=== PATIENT | female | born 2000 | race Two or more races ===

== ENCOUNTER 2025-03-13 15:26 | Emergency (ER) | payer MEDICAID, SELFPAY ==
[2025-03-13 15:30] VITALS: BMI 28.3
--- NOTE | 2025-03-13 16:12 | XR_ITS ---
Examination: Lumbar spine 3 views Technique: AP lateral lumbar spine 3 views Date and time: March 13, 2025, 1627 hrs. Indications: Low back pain with bilateral hip pain beginning one month ago. Findings: Adequate alignment lumbar vertebral bodies Moderate to advanced disc narrowing L4-L5, L5-S1. No lumbar fracture Impression: Moderate to advanced degenerative disc disease L4-L5, L5-S1
--- NOTE | 2025-03-13 16:12 | XR_ITS ---
Examination: AP pelvis single view Technique one AP pelvis single view Date and time: March 13, 2025 1619 hrs. Indications: Bilateral hip pain beginning one month ago. Findings: No hip fracture or hip dislocation No acute significant arthritic change Multiple pelvis intact Impression: No hip fracture No hip arthritic change
--- NOTE | 2025-03-13 16:12 | PD.EDRME ---
Rapid Medical Screening Exam RME Arrival date/time: 03/13/25 15:26 24-year-old female presents to the emergency department for complaint of lower back pain generalized fatigue bilateral hip pain Chief Complaint: Back Pain/Injury Time Seen by Provider: 03/13/25 16:06
[2025-03-13 16:15] VITALS: BP 128/76; PULSE 104; RESP 18; TEMP 36.9; O2SAT 97
[2025-03-13 16:33] LABS: Basophils # (Auto) 0.0 Thou/mm3 (0.0-0.2); Basophils % (Auto) 0 % (0-2.5); Eosinophils # (Auto) 0.0 Thou/mm3 (0.0-0.5); Eosinophils % (Auto) 1 % (0-10); Hematocrit 39.2 % (36.0-46.0); Hemoglobin 13.2 g/dL (12.0-16.0); Immature Granulocytes Auto 0.01 Thou/mm3 (0.00-0.00); Lymphocytes # (Auto) 2.3 Thou/mm3 (1.0-4.8); Lymphocytes % (Auto) 31 % (10-50); Mean Corpuscular HGB Conc 33.7 g/dl (31.0-37.0); Mean Corpuscular Hemoglobin 30.1 pg (25.0-35.0); Mean Corpuscular Volume 90 fL (80-100); Monocytes # (Auto) 0.6 Thou/mm3 (0.0-0.8); Monocytes % (Auto) 8 % (0-12); Neutrophils # (Auto) 4.5 Thou/mm3 (1.8-7.7); Neutrophils % (Auto) 60 % (37-80); Nucleated Red Blood Cell # 0.00 Thou/mm3 (0.00-0.00); Nucleated Red Blood Cell % 0 /100 WBC (0); Platelet Count 288 Thou/mm3 (140-440); RDW Standard Deviation 42.1 fL (36.4-46.3); Red Blood Count 4.38 Miln/mm3 (4.00-5.20); White Blood Count 7.4 Thou/mm3 (3.6-11.0)
[2025-03-13 16:56] LABS: Alanine Aminotransferase 23 U/L (10-49); Albumin, Serum 4.7 gm/dL (3.5-5.0); Albumin/Globulin Ratio 1.6 (1.2-2.2); Alkaline Phosphatase 71 U/L (46-116); Anion Gap 9 (7-16); Aspartate Amino Transferase 17 U/L (0-34); BUN/Creatinine Ratio 12 Ratio (12-20); Bilirubin,Total 0.3 mg/dL (0.3-1.2); Blood Urea Nitrogen 11 mg/dL (9-23); Calcium 9.9 mg/dL (8.3-10.6); Calcium (Corrected) 9.9 mg/dL (8.5-10.1); Carbon Dioxide 28.2 mMol/L (20.0-31.0); Chloride 104 mMol/L (98-107); Creatinine (Component) 0.9 mg/dL (0.6-1.3); Estimated Creatinine Clearance 98.1 mL/min (>60); Globulin 3.0 gm/dL (2.3-3.5); Glucose 58 mg/dL (74-106); Osmolality,Calculated 278 (275-295); Potassium 3.5 mMol/L (3.4-5.1); Sodium 141 mMol/L (136-145); Total Protein 7.7 gm/dL (5.7-8.2); eGFR > 60 See Note
[2025-03-13 17:16] LABS: Collection Type, Urine Clean Catch
[2025-03-13 17:23] LABS: Bilirubin,Urine Negative (Negative); Blood,Urine Negative (Negative); Clarity,Urine Clear (Clear/Hazy); Color,Urine Yellow (Lt Yel-Yel); Culture Indicated,Urine Not Indicated; Glucose, Urine Negative (Negative); Ketones,Urine Negative (Negative); Leukocyte Esterase,Urine Positive (Negative); Nitrite,Urine Negative (Negative); PH,Urine 6.0 (5.0-7.0); Protein,Urine Trace (Neg - Trace); RBC,Urine 6 /hpf (0-3); Specific Gravity,Urine 1.031 (1.001-1.035); Squamous Epithelial Cell,Urine 1 /hpf (0-5); Urobilinogen,Urine Negative mg/dL (0.0-1.0); WBC,Urine 3 /hpf (0-5)
[2025-03-13 17:29] LABS: HCG Qualitative,Urine Negative
[2025-03-13 19:26] VITALS: BP 125/65; PULSE 95; RESP 18; TEMP 36.9; O2SAT 98
--- NOTE | 2025-03-13 19:40 | PD.EDBACK ---
ED Back Injury Pain RME/HPI General Chief Complaint: Back Pain/Injury Stated Complaint: LOWER BACK/ABD AND HIP PAIN Time Seen by Provider: 03/13/25 16:06 Arrival date/time: 03/13/25 15:26 RME / HPI RME / HPI Narrative: 24-year-old female presents to the emergency department for complaint of lower back pain generalized fatigue bilateral hip pain. Onset of symptoms for the last 1 month getting worse over time. Currently patient is having 10 out of 10 pain. Patient denies any bladder incontinence. Denies any bowel incontinence. Denies any saddle anesthesia patient is ambulatory. Patient denies any recent trauma or fall. Denies any fever also. Patient is ambulatory. Related Data Previous Rx's ?Medication ?Instructions ?Recorded azithromycin 500 mg tablet See Rx Instructions PO .COMPLEX #6 06/06/22 tabs ibuprofen 800 mg tablet 800 mg PO TID PRN pain #30 tabs 06/06/22 naproxen 500 mg tablet 500 mg PO BID PRN pain #30 tabs 12/26/22 dexamethasone 6 mg tablet 6 mg PO QDAY #7 tabs 03/13/25 ibuprofen 800 mg tablet 800 mg PO Q8H PRN pain #30 tabs 03/13/25 lidocaine 5 % topical patch 1 patch topical QDAY #15 ea 03/13/25 methocarbamol 500 mg tablet 500 mg PO TID PRN pain #30 tabs 03/13/25 Allergies Allergy/AdvReac Type Severity Reaction Status Date / Time No Known Allergies Allergy Verified 03/13/25 15:29 Review of Systems Review of Systems Narrative Review of Systems: Review of system reviewed and within normal limits except mentioned in HPI ED Exam Narrative Physical exam: VITAL SIGNS: Reviewed. GENERAL APPEARANCE: Alert and interactive, follows commands, no acute distress, HEAD AND FACE: Non-traumatic. ENT: PERRL, pink conjunctivitis, eyelid no trauma, Mucous membrane moist. NECK: Supple, nontender, no nuchal rigidity. CHEST: No tenderness, no crepitus, no paradoxical movement, no retractions. LUNGS: Clear, well ventilated, symmetric, no rales, no wheezing, no ronchi, no stridor, good breath sounds bilaterally. HEART: Regular rate, regular rhythm, no murmur, no gallops. ABDOMEN: Soft, positive bowel sounds, nondistended, no guarding, nontender, no rebound, no masses, RECTAL: Deferred. GENITAL: Deferred. NEUROLOGICAL: Gross motor function intact sensory function intact, Appropriate for age. MUSCULOSKELETAL: low back tenderness, no midline tenderness, full range of motion. EXTREMITIES: Nontender, full range of motion. SKIN: Color pink, dry, no rash, no lacerations, no abrasions, no contusions. LYMPHATICS: Deferred. Course Quality Measures none Orders Category Date Time Status XR lumbar spine 2-3V Stat Exams 03/13/25 16:12 Completed XR pelvis 1-2V Stat Exams 03/13/25 16:12 Completed CBC Stat Lab 03/13/25 16:23 Completed Comprehensive Metabolic Panel Stat Lab 03/13/25 16:23 Completed HCG Qualitative,Urine Stat Lab 03/13/25 17:02 Completed UA, C/S IF [Urinalysis, C/S if Indicated] Stat Lab 03/13/25 17:02 Completed Dexamethasone Inj [Decadron Inj] Med 03/13/25 19:38 Discontinued 10 mg PO X1 ONE Ketorolac Inj [Toradol Inj] Med 03/13/25 19:38 Discontinued 30 mg IM X1 ONE Lidocaine 5% Patch Med 03/13/25 19:38 Discontinued 1 patch TOP X1 ONE methocarbamoL [Robaxin] Med 03/13/25 19:38 Discontinued 500 mg PO X1 ONE Vital Signs Vital signs: Vital Signs Temperature 98.4 F 03/13/25 16:15 Pulse Rate 104 H 03/13/25 16:15 Respiratory Rate 18 03/13/25 16:15 Blood Pressure 128/76 03/13/25 16:15 Pulse Oximetry (%) 97 03/13/25 16:15 Oxygen Delivery Method Room Air 03/13/25 16:15 Back Pain / Injury MDM Narrative MDM Narrative:: 24-year-old female presents to the emergency department for complaint of lower back pain generalized fatigue bilateral hip pain. Onset of symptoms for the last 1 month getting worse over time. Currently patient is having 10 out of 10 pain. Patient denies any bladder incontinence. Denies any bowel incontinence. Denies any saddle anesthesia patient is ambulatory. Patient denies any recent trauma or fall. Denies any fever also. Patient is ambulatory. Patient's workup today all came back unremarkable except for x-ray of the lumbar spine that showed degenerative disc lumbar disease. Patient received Decadron, Toradol lidocaine patch and Robaxin with significant improvement of pain. Patient stable for discharge home further imaging is not needed patient not showing any cauda equina syndrome. Patient data External records reviewed:: None Clinical information provided by:: patient Social determinants that could affect healthcare access:: none Patient has the following chronic illnesses:: None How is presenting disease/condition affected by chronic disease/condition?: no chronic disease Evaluation data The following diagnostics were reviewed and interpreted by me:: lab results and radiology exam(s) Lab and/or radiology exams considered but not ordered:: None Interpretation Summary: See results [facility] Medications / Prescriptions Medications or Prescriptions considered but not ordered:: None Medication administrations:: Medication Administration History Discontinued Medications Dexamethasone Sodium Phosphate (Dexamethasone Sod Phos Inj 10 Mg/Ml Vial) 10 mg PO X1 ONE Stop: 03/13/25 19:39 Last Admin: 03/13/25 19:58 Dose: 10 mg Documented By: Ketorolac Tromethamine (Ketorolac Inj 60 Mg/2 Ml Vial) 30 mg IM X1 ONE Stop: 03/13/25 19:39 Last Admin: 03/13/25 19:59 Dose: 30 mg Documented By: Lidocaine (Lidocaine 5% 1 Patch) 1 patch TOP X1 ONE Stop: 03/13/25 19:39 Last Admin: 03/13/25 20:02 Dose: 1 patch Documented By: Methocarbamol (Methocarbamol 500 Mg Tablet) 500 mg PO X1 ONE Stop: 03/13/25 19:39 Last Admin: 03/13/25 19:56 Dose: 500 mg Documented By: See [facility] Consultations Consultation(s) initiated? (list below): No Diagnosis Differential diagnosis back pain/injury: lumbar radiculopathy and sciatica Most likely diagnosis given after review of the tests above:: Degenerative disc disease lumbar Admission Indicated Admission indicated?: not indicated Admission Request Was there a request for admission?: No Disposition Plan Disposition Plan: Discharge Discharge Attestation Discharge Attestation: The patient was given an opportunity to ask questions and understood the discharge instructions. Discharge instructions specifically effects, indications for sooner follow up or return to the emergency department, and the expected course of current diagnosis. Patient condition: Stable Discharge Plan Plan Patient Disposition: HOME (Self Care) Discharge Disposition comment: Stable Prescriptions/Referrals Prescriptions/Med Rec: New dexamethasone 6 mg tablet 6 mg PO QDAY Qty: 7 0RF lidocaine 5 % adhesive patch,medicated 1 patch topical QDAY Qty: 15 0RF Rx Instructions: leave on most painful area for up to 12 hrs ibuprofen 800 mg tablet 800 mg PO Q8H PRN (Reason: pain) Qty: 30 0RF methocarbamol 500 mg tablet 500 mg PO TID PRN (Reason: pain) Qty: 30 0RF No Action ibuprofen 800 mg tablet 800 mg PO TID PRN (Reason: pain) Qty: 30 0RF azithromycin 500 mg tablet See Rx Instructions .ROUTE .COMPLEX Qty: 6 0RF Rx Instructions: take 500 mg today (day 1), then 250 mg for 4 days (days 2-5) naproxen 500 mg tablet 500 mg PO BID PRN (Reason: pain) Qty: 30 0RF Referrals: Eileen Trayolr PA-C [Primary Care Provider] - In 1 week Problem List Clinical Impression: Degenerative joint disease (DJD) of lumbar spine Patient/Caregiver Discharge Instructions Discharge Activity: activity as tolerated Education Materials: Common Spine and Disk Problems, ED Degenerative Disk Disease Additional Instructions: Thank you for the opportunity for serving you today. You are stable for discharged . You are advised to: Follow-up with your PCP in 1 to 2 days as your PCP to refer you to a spine surgeon Return to ED for worsening of symptoms Increase oral fluids Take medication as prescribed Print Language: Bengali Stand Alone Forms: Jalyn Award Info., Work/School Release, Patient Portal Info Letter
[2025-03-13] MEDS: DEXAMETHASONE SOD PHOS INJ 10 MG/ML VIAL PO (19:58)
[2025-03-13] MEDS: KETOROLAC INJ 60 MG/2 ML VIAL 30 MG IM (19:59)
[2025-03-13] MEDS: LIDOCAINE 5% 1 PATCH TOP (20:02)
== END 2025-03-13 20:08 | disposition home or self-care (01) ==
PROVIDERS: Nurse Practitioner Primary Care; Emergency Provider Family Medicine; PCP Physician Assistant Medical
DX: M51.360 Other intervertebral disc degeneration, lumbar region with discogenic back pain only (principal)
CPT/HCPCS: 36415; 72100; 72170; 80053; 81001; 81025; 85025; 96372; 99283; J1100; J1885; J3490

== ENCOUNTER 2025-04-03 20:17 | Emergency (ER) | payer MEDICAID, SELFPAY ==
[2025-04-03 20:18] VITALS: BMI 29.4
[2025-04-03 21:05] VITALS: BP 128/72; PULSE 110; RESP 16; TEMP 37.2; O2SAT 99
--- NOTE | 2025-04-03 21:08 | XR_ITS ---
Examination: CT lumbar spine, without contrast. 2-D sagittal reconstructions. 2-D coronal reconstructions. 3-D reconstructions. Date and time of exam:April, 10:45 PM Indications: Low back pain radiating down the legs numbness in the legs one month CTDI: vol (mGy):20.1 DLP: (mGycm):791 Technique: Multiple 1.25 mm axial sections of the lumbar spine without intravenous contrast have been obtained. 2-D sagittal and coronal reconstructions have been obtained. 3-D reconstructions have been obtained. Low dose protocols were performed. One or more of the following dose reduction techniques were used; automated exposure control, adjustment of the mA and/or KV according to patient size, use of iterative reconstruction technique. Findings: Adequate alignment lumbar vertebral bodies No lumbar fracture Mild disc narrowing L4-L5. No spondylolisthesis. L5-S1 9 mm right paracentral disc bulge, displacing the right S1 nerve root and producing severe right L5 ganglionic compression L4-L5 4 mm central lumbar disc bulge More cephalad levels unremarkable Impression: L5-S1 large, 9 mm, right paracentral disc bulge displacing the right S1 nerve root and producing severe right L5 ganglionic compression L4-L5 4 mm central lumbar disc bulge
--- NOTE | 2025-04-03 21:08 | PD.EDRME ---
Rapid Medical Screening Exam [facility] Arrival date/time: 04/03/25 20:17 24F with no significant PMH presents to ED with worse than usual low back pain, as well as several hours of BLE numbness. Patient denies bowel/bladder incontinence. Patient took 800 mg ibuprofen w/o relief. Chief Complaint: Back Pain/Injury Vital signs: Vital Signs Temperature 98.9 F 04/03/25 21:05 Pulse Rate 110 H 04/03/25 21:05 Respiratory Rate 16 04/03/25 21:05 Blood Pressure 128/72 04/03/25 21:05 Pulse Oximetry (%) 99 04/03/25 21:05 Oxygen Delivery Method Room Air 04/03/25 21:05
[2025-04-03 21:54] VITALS: BP 122/83; PULSE 96; RESP 19; TEMP 36.9; O2SAT 100
[2025-04-03 22:00] VITALS: BP 140/73; PULSE 96; RESP 23; O2SAT 98
[2025-04-03 22:17] LABS: Collection Type, Urine Clean Catch
[2025-04-03 22:19] LABS: HCG Qualitative,Urine Negative
[2025-04-03 22:23] LABS: Amorphous Crystals,Urine Present (Absent); Bacteria,Urine Rare; Bilirubin,Urine Negative (Negative); Blood,Urine 1+ (Negative); Calcium Oxalate Crystals,Urine 1+; Clarity,Urine Clear (Clear/Hazy); Color,Urine Yellow (Lt Yel-Yel); Culture Indicated,Urine Not Indicated; Glucose, Urine Negative (Negative); Ketones,Urine Negative (Negative); Leukocyte Esterase,Urine Positive (Negative); Nitrite,Urine Negative (Negative); PH,Urine 6.0 (5.0-7.0); Protein,Urine Trace (Neg - Trace); RBC,Urine 10 /hpf (0-3); Specific Gravity,Urine 1.024 (1.001-1.035); Squamous Epithelial Cell,Urine 1 /hpf (0-5); Urobilinogen,Urine 4.0 mg/dL (0.0-1.0); WBC,Urine 2 /hpf (0-5)
--- NOTE | 2025-04-03 22:27 | EDNOTE_ITS ---
ED Back Injury Pain RME/HPI General Chief Complaint: Back Pain/Injury Stated Complaint: LOWER BACK PAIN Arrival date/time: 04/03/25 20:17 Limitations: no limitations RME / HPI RME / HPI Narrative: 04/03/25 20:17 24F with no significant PMH presents to ED with worse than usual low back pain, as well as several hours of BLE numbness. Patient denies bowel/bladder incontinence. Patient took 800 mg ibuprofen w/o relief. Dr. Alejandro's Main ED Evaluation: 24yo female with recent diagnosis of DJD presents to the ED for complaints of lower back pain that radiates down to her legs. Patient has had lower back pain for the last 3 months, but today she developed numbness, tingling, and weakness to her BLE (L>R) at 1800 and was concerned, so she came in for evaluation. Patient denies any trauma. She has not been on any steroids. She denies any fever, chills, N/V, urinary/bowel incontinence, or any other associated symptoms. Patient is pending insurance authorization for physical therapy. Related Data Previous Rx's ?Medication ?Instructions ?Recorded azithromycin 500 mg tablet See Rx Instructions PO .COM PLEX #6 06/06/22 tabs ibuprofen 800 mg tablet 800 mg PO TID PRN pain #30 t abs 06/06/22 naproxen 500 mg tablet 500 mg PO BID PRN pain #30 t abs 12/26/22 dexamethasone 6 mg tablet 6 mg PO QDAY #7 tabs 5 ibuprofen 800 mg tablet 800 mg PO Q8H PRN pain #30 t abs 03/13/25 lidocaine 5 % topical patch 1 patch topical QDAY #15 e a 03/13/25 methocarbamol 500 mg tablet 500 mg PO TID PRN pain #30 tabs 03/13/25 Allergies Allergy/AdvReac Type Severity Reaction Status Date / Time No Known Allergies Allergy Verified 04/03/25 20:20 Review of Systems Review of Systems Systems Reviewed: All systems reviewed, normal except as documented ED Exam General Limitations: Present no limitations General appearance: Present alert and in no apparent distress Head Head exam: Present atraumatic Eye Eye exam: Present normal appearance, PERRL and EOMI ENT ENT exam: Present normal exam, normal oropharynx and mucous membranes moist Neck Neck exam: Present normal inspection, full ROM and trachea midline Chest Chest inspection: Present normal inspection and symmetric chest wall rise Respiratory Respiratory exam: Present normal lung sounds bilaterally Cardiovascular Cardiovascular exam: Present regular rate, normal rhythm and normal heart sounds Abdominal Exam Abdominal exam: Present soft Rectal Exam Rectal exam: Present other (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; normal sensation at the rectum and perineum with good rectal tones) Extremities Exam Extremities exam: Present full ROM and other (decreased, but equal reflexes to the bilateral ankles and knees; decreased sensations to 2 point discrimination at the level of L3-L5 (bilateral medial thighs, medial legs, and medial aspect of the feet)) Back Exam Back exam: Present normal inspection and full ROM Neurological Exam Neurological exam: Present alert, oriented X3 and CN II-XII intact Psychiatric Psychiatric exam: Present normal affect and normal mood Skin Skin exam: Present warm, dry, intact and normal color Course Course Course Narrative: 0400: Patient with continued pain will get MRI. Patient states her pain is down to 2 out of 10 however will check MRI, on steroids and follow-up with neurology, Nate Bran, [address] [place] [address] [place] [address], . Signed out to Dr. Ontiveros at 0 600 pending final disposition. Quality Measures none Orders Category Date Time Status IV [Insert IV] STAT Care 04/03/25 22:23 Active MRI Screening NOW Care 04/04/25 01:42 Active MRI Screening NOW Care 04/04/25 01:[address] lumbar spine wo con Stat Exams 04/03/25 21:08 Completed MR lumbar spine wo con Stat Exams 04/04/25 Ordered CRP [C-Reactive Protein] Stat Lab 04/03/25 22:25 Completed HCG Qualitative,Urine Stat Lab 04/03/25 22:08 Completed Lactic Acid [Lactate (Lactic Acid)] Stat Lab 04/03/25 22:25 Completed Lactic Acid, 3 HR Stat Lab 04/04/25 02:38 Completed Urinalysis, C/S if Indicated Stat Lab 04/03/25 22:08 Completed Dexamethasone Inj [Decadron Inj] Med 04/03/25 22:23 Discontinued 10 mg IVP X1 ONE Ketorolac Inj [Toradol Inj] Med 04/04/25 01:25 Discontinued 30 mg IVP X1 ONE Morphine* Inj Med 04/03/25 22:24 Discontinued 8 mg IVP X1 ONE Ondansetron Inj [Zofran Inj] Med 04/03/25 22:25 Discontinued 4 mg IVP X1 ONE Sodium Chloride 0.9% 1000 ml [Ns] 1,000 ml Med 04/03/25 22:23 Discontinued IV 999 mls/hr oxyCODONE/APAP 5/325 [Percocet 5/325] Med 04/03/25 21:08 Discontinued 1 tab PO X1 ONE Vital Signs Vital signs: Vital Signs Temperature 98.9 F 04/03/25 21:05 Pulse Rate 110 H 04/03/25 21:05 Respiratory Rate 16 04/03/25 21:05 Blood Pressure 128/72 04/03/25 21:05 Pulse Oximetry (%) 99 04/03/25 21:05 Oxygen Delivery Method Room Air 04/03/25 21:05 Back Pain / Injury MDM Narrative MDM Narrative:: Scribe Attestation: 04/03/25 - Era Liz am scribing for and in the presence of Dr. Alejandro. 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 The patient also states she started having worsening bilateral weakness tonight. Patient has been pending workup with her primary care physician to include physical therapy, possible injections but has not had a chance to get any of that started because of her insurance. Patient was placed into a bed and immediately pain medicine and CT scan ordered. Concern for worsening low back pain to include compression, cauda equina, another neurological emergency versus pain control and just worsening degenerative joint disease. Patient is given pain control. On physical exam the patient is noted to have 345 decree sensation to 2 point discrimination on the left lower extremity, bilateral reflexes in the lower extremity but equal no clonus is noted. Patient is not having decree sensation in the anus area, or bowel or bladder incontinence, normal rectal tone. CT scan is concerning for 9 mm disc bulge with compression onto the L5 nerve root. Patient is treated with pain medicine, dexamethasone, Zofran and her pain is from 10 out of 10 down to 2 out of 10. No new reported trauma today. Patient is not complaining of fevers so do not suspect spinal abscess. Patient data External records reviewed:: [facility] previous records (Per chart review, patient was seen here on 03/13/25 for degenerative joint disease (DJD) of lumbar spine.) Clinical information provided by:: patient Social determinants that could affect healthcare access:: none Patient has the following chronic illnesses:: DJD How is presenting disease/condition affected by chronic disease/condition?: caused by Evaluation data The following diagnostics were reviewed and interpreted by me:: lab results and radiology exam(s) Lab and/or radiology exams considered but not ordered:: none Interpretation Summary: CRP normal. HCG negative. [facility] Report Signed Patient: TONI JAMES. Record#: [id number] Birthdate: 2000 Age/Sex: 24 / F Location: [facility] Attending Dr: Ordering Physician: Kenny Pennington PA-C Date of Service: 04/03/25 Procedure(s): CT lumbar spine wo con Accession Number(s): [id number] cc: Mekhi Coreas MD; NO PRIMARY/FAMILY,PHYSICIAN; Kenny Pennington PA-C~ Examination: CT lumbar spine, without contrast. 2-D sagittal reconstructions. 2-D coronal reconstructions. 3-D reconstructions. Date and time of exam:April, 10:45 PM Indications: Low back pain radiating down the legs numbness in the legs one month CTDI: vol (mGy):20.1 DLP: (mGycm):791 Technique: Multiple 1.25 mm axial sections of the lumbar spine without intravenous contrast have been obtained. 2-D sagittal and coronal reconstructions have been obtained. 3-D reconstructions have been obtained. Low dose protocols were performed. One or more of the following dose reduction techniques were used; automated exposure control, adjustment of the mA and/or KV according to patient size, use of iterative reconstruction technique. Findings: Adequate alignment lumbar vertebral bodies No lumbar fracture Mild disc narrowing L4-L5. No spondylolisthesis. L5-S1 9 mm right paracentral disc bulge, displacing the right S1 nerve root and producing severe right L5 ganglionic compression L4-L5 4 mm central lumbar disc bulge More cephalad levels unremarkable Impression: L5-S1 large, 9 mm, right paracentral disc bulge displacing the right S1 nerve root and producing severe right L5 ganglionic compression L4-L5 4 mm central lumbar disc bulge Dictated By: Mekhi Coreas MD Signed By: <Electronically signed by Mekhi Coreas MD in [place]> 04/03/25 2679 Medications / Prescriptions Medications or Prescriptions considered but not ordered:: none Medication administrations:: Medication Administration History Discontinued Medications Dexamethasone Sodium Phosphate (Dexamethasone Sod Phos Inj 10 Mg/Ml Vial) 10 mg IVP X1 ONE Stop: 04/03/25 22:24 Last Admin: 04/03/25 23:01 Dose: 10 mg Documented By: EE Sodium Chloride (Ns) 1,000 mls @ 999 mls/hr IV .Q1H1M ONE Stop: 04/03/25 23:23 Last Infusion: 04/04/25 00:14 Dose: Infused Documented By: Admin: 04/03/25 23:01 Dose: 999 mls/hr Documented By: EE Ketorolac Tromethamine (Ketorolac Inj 30 Mg/Ml Vial) 30 mg IVP X1 ONE Stop: 04/04/25 01:26 Last Admin: 04/04/25 01:46 Dose: 30 mg Documented By: EE Morphine Sulfate (Morphine Sulf Inj 4 Mg/Ml Vial) 8 mg IVP X1 ONE Stop: 04/03/25 22:25 Last Admin: 04/03/25 23:01 Dose: 8 mg Documented By: EE Ondansetron HCl (Ondansetron Inj 2 Mg/Ml Inj 2 Ml) 4 mg IVP X1 ONE; Protocol Stop: 04/03/25 22:26 Last Admin: 04/03/25 23:02 Dose: 4 mg Documented By: EE Oxycodone/Acetaminophen (Oxycodone/Apap 5/325 Tablet) 1 tab PO X1 ONE Stop: 04/03/25 21:09 Last Admin: 04/03/25 22:05 Dose: 1 tab Documented By: EE see above Consultations Consultation(s) initiated? (list below): Yes Consultation #1 (Physician, Specialty, Details): Discussed case with Dr. Shane from neurosurgery at [facility] regarding consultation/possible transfer. Discussed patients ED course, exam findings, labs, and radiology results. Does not feel the patient has cauda equina at this time and to consider having the patient follow-up as an outpatient with a spine surgeon and mobile paint specialist. Time: 01:16 Diagnosis Differential diagnosis back pain/injury: lumbar radiculopathy, sciatica, strain of lumbar region and discitis Most likely diagnosis given after review of the tests above:: see clinical impression below Admission Indicated Admission indicated?: not indicated Admission Request Was there a request for admission?: No Disposition Plan Disposition Plan: other (specify) (Signed out to Dr. Ontiveros at 6 AM pending MRI.) Discharge Plan Prescriptions/Referrals Prescriptions/Med Rec: No Action ibuprofen 800 mg tablet 800 mg PO TID PRN (Reason: pain) Qty: 30 0RF azithromycin 500 mg tablet See Rx Instructions .ROUTE .COMPLEX Qty: 6 0RF Rx Instructions: take 500 mg today (day 1), then 250 mg for 4 days (days 2-5) naproxen 500 mg tablet 500 mg PO BID PRN (Reason: pain) Qty: 30 0RF dexamethasone 6 mg tablet 6 mg PO QDAY Qty: 7 0RF lidocaine 5 % adhesive patch,medicated 1 patch topical QDAY Qty: 15 0RF Rx Instructions: leave on most painful area for up to 12 hrs ibuprofen 800 mg tablet 800 mg PO Q8H PRN (Reason: pain) Qty: 30 0RF methocarbamol 500 mg tablet 500 mg PO TID PRN (Reason: pain) Qty: 30 0RF Referrals: Will Bran MD [Referring Provider] - 04/07/25 Referral Note: You will need your primary care to send Dr. Bran a referral. Clinical Impression: Left leg numbness; Bulging of intervertebral disc be tween L4 and L5 No Primary/Family,Physician [Primary Care Provider] - In 1 week Problem List Clinical Impression: Left leg numbness, Bulging of intervertebral disc between L4 and L5, Low back pain Patient/Caregiver Discharge Instructions Education Materials: Self-Care for Low Back Pain, Understanding Lumbar Radiculopathy Print Language: [place]
[2025-04-03 22:37] VITALS: BP 128/80; PULSE 100; RESP 24; O2SAT 100
[2025-04-03 22:42] VITALS: BP 128/80; PULSE 96; RESP 18; TEMP 36.6; O2SAT 97
[2025-04-03 23:01] VITALS: BP 142/84; PULSE 101; RESP 20; O2SAT 99
[2025-04-03] MEDS: MORPHINE SULF INJ 4 MG/ML VIAL 8 MG IVP (23:01)
[2025-04-03] MEDS: SODIUM CHLORIDE 0.9% 1000 ML 1,000 ML 999 ML IV (23:01)
[2025-04-03] MEDS: DEXAMETHASONE SOD PHOS INJ 10 MG/ML VIAL IVP (23:01)
[2025-04-03] MEDS: ONDANSETRON INJ 2 MG/ML INJ 2 ML 4 MG IVP (23:02)
[2025-04-03 23:57] LABS: Lactate (Lactic Acid) 2.1 mMol/L (0.4-2.0)
[2025-04-04] VITALS (10 sets, daily range): BP systolic 108–132; BP diastolic 56–85; PULSE 71–98; RESP 12–27; TEMP 36.7–37.1; O2SAT 94–98
--- NOTE | 2025-04-04 | XR_ITS ---
Examination: MRI lumbar spine without contrast Date and time of exam: April 04, 2025, 1226 hours INDICATIONS: Lower back pain radiating to the legs this week Technique: Multiple MRI axial and sagittal sections lumbar spine. Sagittal T2-weighted images, TR 3500, TE 118 T1 weighted transverse sections, TR 688 T8.5, T2-weighted sagittal sections T1 weighted sagittal sections TR 621, TE 30 T2 axial sections, TR 4, 190, TE 84. Findings: Adequate alignment lumbar vertebral bodies No lumbar fracture. Disc desiccation L4-L5, L5-S1 L5-S1 10 mm partially extruded right paracentral disc bulge severely indenting the thecal sac and displacing the right S1 nerve root L4-L5 5 mm central lumbar disc bulge indenting the ventral margin thecal sac, with annular disc tear L3-L4 2 mm right paracentral disc bulge More cephalad levels unremarkable IMPRESSION: L5-S1 10 mm partially extruded right paracentral disc bulge severely indenting the thecal sac and displacing the right S1 nerve root L4-L5 5 mm central lumbar disc bulge L3-L4 2 mm right paracentral disc bulge
[2025-04-04 00:17] LABS: C-Reactive Protein 0.9 mg/dL (0.0-0.9)
--- NOTE | 2025-04-04 00:56 | PC.NURSE ---
MD Calero requesting transfer for Neuro Sx- L5 compresssion. [facility] & [facility] sent clinicals.
[2025-04-04] MEDS: KETOROLAC INJ 30 MG/ML VIAL IVP (01:46)
[2025-04-04 02:19] LABS: Reflex Lactate? Y
[2025-04-04 02:41] LABS: Lactic Acid, 3 HR 1.6 mMol/L (0.4-2.0)
--- NOTE | 2025-04-04 04:24 | PC.NURSE ---
Per Azam at [facility] they recommend MRI, states pt doesn't need transfer. MD Calero aware
--- NOTE | 2025-04-04 06:22 | PD.EDADDENDU ---
Emergency Room Addendum <Frances Ontiveros MD - Last Filed: 04/04/25 17:11> Addendum Narrative: 0600hrs: Received signout from Dr. Calero. I will assume the care of the patient at this time and will follow the patient, pending placement. Please refer to the emergency department record for history and examination from initial visit. The following addendum documentation note is intended to reflect any pending information, findings, or radiology results not included in the patient?s initial chart. Pt is pending MRI back. MRI of lumbar spine shows L5-S1 10 mm partially extruded right paracentral disc bulge severely indenting the thecal sac and displacing the right S1 nerve root. L4-L5 5 mm central lumbar disc bulge. L3-L4 2 mm right paracentral disc bulge 1700h: The patient doesn't want to be transferred and states she would rather go home and follow up with PCP to facilitate referral for the surgery and PT services. Will dc home. Scripts sent. DX: Lumbar radiculopathy, disc prolapse Dispo: DC home <Lanny Fortune - Last Filed: 04/04/25 17:10> Addendum Narrative: 0600hrs: Received signout from Dr. Calero. I will assume the care of the patient at this time and will follow the patient, pending placement. Please refer to the emergency department record for history and examination from initial visit. The following addendum documentation note is intended to reflect any pending information, findings, or radiology results not included in the patient?s initial chart. Pt is pending MRI back. MRI of lumbar spine shows L5-S1 10 mm partially extruded right paracentral disc bulge severely indenting the thecal sac and displacing the right S1 nerve root. L4-L5 5 mm central lumbar disc bulge. L3-L4 2 mm right paracentral disc bulge 1700h: The patient doesn't want to be transferred and states she would rather go home and follow up with PCP to facilitate referral for the surgery and PT services.
--- NOTE | 2025-04-04 08:29 | PC.CM ---
Addendum entered by Ashley Mishra RN 04/04/25 18:28: Transfer was canceled and patient was discharged home. Addendum entered by Ashley Mishra RN 04/04/25 15:37: 1515 Colleen with [facility] wanted to speak to Dr. Ontiveros so I did a conference call to connect them. 1500 I contacted [facility] in [place] and initiated a transfer with [facility]. I faxed over information and started a packet. 1445 I called and spoke to Dolores at the transfer center at [facility]. I let her know I faxed over the MRI results. She states their doctor Acosta already spoke to our Dr. Leal early this morning and he declined patient. He told Dr. Leal that patient does not need an acute transfer. He recommended to Dr. Calero patient needs pain management. I notified Dr. Ontiveros. Original Note: I spoke to [place] change nurse. She states she spoke to Dr. Ontiveros and they will be getting an MRI. If it is negative they will discharge patient. floodplain manager sent a referral to to [facility] and to [facility] last night. [facility] said they wanted a MRI before they would review patient.
[2025-04-04] MEDS: ONDANSETRON INJ 2 MG/ML INJ 2 ML 4 MG IVP (09:08)
[2025-04-04] MEDS: MORPHINE SULF INJ 4 MG/ML VIAL IV (09:08)
== END 2025-04-04 17:19 | disposition home or self-care (01) ==
PROVIDERS: Emergency Medicine; Physician Assistant; Emergency Provider Family Medicine
DX: M51.16 Intervertebral disc disorders with radiculopathy, lumbar region (principal); M51.17 Intervertebral disc disorders with radiculopathy, lumbosacral region
CPT/HCPCS: 36415; 72131; 72148; 81001; 81025; 83605; 86140; 96361; 96374; 96375; 96376; 99284; J1100; J1885; J2270; J2405; J7030; A9270